=== PATIENT | female | born 1955 | race Caucasian/White ===

== ENCOUNTER 2019-03-11 18:46 | Emergency (ER) | payer MEDICARE, MEDICAID ==
[~2019-03-11] VITALS: Ht 157.5 cm; Wt 90.0 kg
[2019-03-11] MEDS ORDERED: GLIP10TA PO (19:01)
[2019-03-11] MEDS ORDERED: OMEP10CASR PO (19:01)
[2019-03-11] MEDS ORDERED: METF850T4 PO (19:01)
[2019-03-11] MEDS ORDERED: LISI40TA PO (19:01)
[2019-03-11] MEDS ORDERED: TRAZ-160 PO (19:05)
[2019-03-11] MEDS ORDERED: SING10TA32 PO (19:05)
[2019-03-11] MEDS ORDERED: SIMV10TA2 PO (19:05)
[2019-03-11] MEDS ORDERED: BUPR150T3 PO (19:07)
[2019-03-11] MEDS ORDERED: LIDOCAINE W/EPINEPHRINE 1% 20ML VIAL SC ONE (20:00)
--- NOTE | 2019-03-11 20:41 | REPVR ---
EXAM: CT Head Without Contrast EXAM DATE/TIME: 03/11/2019 7:53 PM CLINICAL HISTORY: 63 years old, female; Injury or trauma; Fall; Initial encounter; Blunt trauma (contusions or hematomas); Consciousness not specified TECHNIQUE: Imaging protocol: Axial computed tomography images of the head/brain without contrast. Radiation optimization: All CT scans at this facility use at least one of these dose optimization techniques: automated exposure control; mA and/or kV adjustment per patient size (includes targeted exams where dose is matched to clinical indication); or iterative reconstruction. COMPARISON: No relevant prior studies available. FINDINGS: Brain: Normal. No hemorrhage. No significant white matter disease. No edema. 5 mm parafalcine lipoma Ventricles: Normal. No ventriculomegaly. Bones/joints: Unremarkable. No acute fracture. Sinuses: Mild mucosal thickening in the ethmoid air cells. Mastoid air cells: Visualized mastoid air cells are unremarkable. No mastoid effusion. Soft tissues: 1.2 cm soft tissue laceration/defect over the right frontal bone. IMPRESSION: 1. No acute intracranial findings. 2. Soft tissue laceration over the right frontal bone Electronically signed by: Gema Mishra On 03/11/2019 20:41:27 PM
--- NOTE | 2019-03-11 20:50 | REPVR ---
EXAM: CT Maxillofacial Without Contrast EXAM DATE/TIME: 03/11/2019 7:53 PM CLINICAL HISTORY: 63 years old, female; Injury or trauma; Fall; Initial encounter; Blunt trauma (contusions or hematomas) and laceration; Forehead and orbit/periorbital; Right; Without residual foreign body TECHNIQUE: Imaging protocol: Axial computed tomography images of the face without intravenous contrast. Coronal and sagittal reformatted images were created and reviewed. Radiation optimization: All CT scans at this facility use at least one of these dose optimization techniques: automated exposure control; mA and/or kV adjustment per patient size (includes targeted exams where dose is matched to clinical indication); or iterative reconstruction. COMPARISON: No relevant prior studies available. FINDINGS: Orbits: No acute intraorbital abnormality. Globes are unremarkable. Auditory system: There is hypo-pneumatization of the right mastoid bone. Sinuses: Mucosal thickening noted within the maxillary sinuses bilaterally. Mild mucosal thickening in the ethmoid air cells bilaterally. Aplastic right frontal sinus. Mild mucosal thickening noted in the sphenoid sinus. Bones/joints: There is a fracture of the tip of the left nasal bone. Dental: There are multiple missing teeth. Oropharynx: Calcification noted over the palatine tonsils. Soft tissues: 1.2 cm soft tissue defect/laceration over the right frontal bone. IMPRESSION: 1. Fracture of the tip of the left nasal bone. 2. Chronic paranasal sinusitis involving the maxillary ethmoid and right sphenoid sinus 3. Soft tissue defect/laceration over the right frontal bone. No evidence of frontal bone fracture Electronically signed by: Gema Mishra On 03/11/2019 20:49:55 PM
[2019-03-11 21:29] VITALS: BP 168/74
== END 2019-03-11 21:30 | disposition home or self-care (01) ==
LOC: M ED 18:46 → EDBD 18:46 → M ED 21:30
DX: S01.01XA Laceration without foreign body of scalp, initial encounter (principal); S02.2XXA Fracture of nasal bones, initial encounter for closed fracture; W10.9XXA Fall (on) (from) unspecified stairs and steps, initial encounter; Y92.099 Unspecified place in other non-institutional residence as the place of occurrence of the external cause; Y93.9 Activity, unspecified; Y99.9 Unspecified external cause status; I25.10 Atherosclerotic heart disease of native coronary artery without angina pectoris; I10 Essential (primary) hypertension; E11.9 Type 2 diabetes mellitus without complications; E78.00 Pure hypercholesterolemia, unspecified; J45.909 Unspecified asthma, uncomplicated; Z79.84 Long term (current) use of oral hypoglycemic drugs; Z79.899 Other long term (current) drug therapy; Z91.041 Radiographic dye allergy status; Z88.8 Allergy status to other drugs, medicaments and biological substances; Z88.2 Allergy status to sulfonamides